=== PATIENT | male | born 1995 | race Caucasian/White ===

== ENCOUNTER 2022-01-14 18:12 | Emergency (ER) | payer SELFPAY ==
[2022-01-14] MEDS ORDERED: Amoxicillin 500 MG Cap ONE (18:30)
[2022-01-14] MEDS ORDERED: Ketorolac 60 MG/2 ML SDV IM ONE (18:42)
== END 2022-01-14 18:32 | disposition home or self-care (01) ==
LOC: LB.ED 18:12
DX: K08.89 Other specified disorders of teeth and supporting structures (principal); Z79.899 Other long term (current) drug therapy
CPT/HCPCS: 96372; 99282; A9270; J1885; 99281